=== PATIENT | male | born 1945 | race Caucasian/White ===

== ENCOUNTER 2024-02-27 08:22 | Inpatient (IN) | payer MEDICARE ==
[2024-02-27] VITALS (7 sets, daily range): BP systolic 136–155; BP diastolic 58–81; PULSE 52–70; TEMP 97.6–98.4
[2024-02-27] MEDS ORDERED: GLUCOPHAGE500 MG/TAB PO (08:44)
[2024-02-27] MEDS ORDERED: B-12 500 MCG PO (08:45)
[2024-02-27] MEDS ORDERED: MEVACOR 20M20 MG/TAB PO (08:46)
[2024-02-27] MEDS ORDERED: COUMADIN 5MG5 MG/TAB PO (08:47)
[2024-02-27] MEDS ORDERED: COUMADIN 6MG6 MG/TAB PO (08:48)
[2024-02-27] MEDS ORDERED: CARTIA XT120 MG PO (08:49)
--- NOTE | 2024-02-27 08:50 | NUR ---
PATIENT ADMITTED TO MEDICAL UNIT AT THIS TIME. ADMISSION INTAKE AND ASSESSMENT COMPLETED. MED REC UPDATED. IV PLACED. UPDATED PATIENT AND ON THE PLAN OF CARE. ORIENTED PATIENT TO ROOM. CALL LIGHT WITHIN REACH. WILL CONTINUE TO MONITOR.
[2024-02-27] MEDS ORDERED: XALATAN EYE DROPS OU (08:51)
[2024-02-27] MEDS ORDERED: ALPHAGAN OPHTH D5 ML OU (08:51)
[2024-02-27] MEDS ORDERED: TIMOLOL MALEATE5 M1 OP (08:52)
[2024-02-27 09:12] LABS: BASO % 0.4 % (0.0-2.0); EOS # 0.2 K/mm3 (0.0-0.7); EOS % 2.4 % (0.0-4.0); GRAN % 57.3 % (42.2-75.2); LYMPH # 2.1 K/mm3 (1.2-3.4); LYMPH % 29.9 % (20.0-51.0); MEAN CELL VOLUME 94 fl (80.0-100.0); MEAN CORPUSCULAR HEMOGLOBIN 33 pg (27-31); MEAN CORPUSCULAR HGB CONC 35 g/dl (33.0-37.0); MEAN PLATELET VOLUME 10.5 fl (7.4-10.4); MONO # 0.7 K/mm3 (0.1-0.6); MONO % 9.6 % (1.7-9.3); PLATELET COUNT 248 K/mm3 (130-400); RED BLOOD COUNT 4.59 M/mm3 (4.20-5.60); REDCELL DISTRIBUTION WIDTH-CV 12.9 % (11.5-14.5)
[2024-02-27 09:18] LABS: INR 2.7 (0.8-3.0); PROTHROMBIN TIME 28.9 SECONDS (9.7-12.8)
[2024-02-27 09:28] LABS: ALBUMIN 3.6 g/dL (3.4-4.8); BILIRUBIN,TOTAL 0.4 mg/dL (0.2-1.2); CALCIUM 8.8 mg/dL (8.4-10.2); CREATININE, serum 0.76 mg/dL (0.72-1.25); POTASSIUM 4.4 mEq/L (3.5-4.5); TOTAL PROTEIN 6.6 g/dl (6.2-8.1)
[2024-02-27] MEDS ORDERED: Ondansetron 4 MG/2 ML VIAL IV PRN (10:00)
[2024-02-27] MEDS ORDERED: Bisacodyl 5 MG TAB PO PRN (10:00)
[2024-02-27] MEDS ORDERED: Magnes Hydrox (MOM) 80 MG/ML 30 ML CUP PO PRN (10:00)
--- NOTE | 2024-02-27 15:11 | NUR ---
CRISTINE met with patient and his Francisca ([phone]) to complete initial assessment for discharge planning. Patient and live in [place], [place], patient sees Dr. Mehul Steel in [facility] as his PCP. Patient uses [facility] in [facility] without difficulty. Pateint has a wheelchair, walker, cane, shower chair and grab bars at home but doesn't use them. Patient reports to be independent with all activities and plans to return home at discharge. Discharge plan: Home
[2024-02-27] MEDS ORDERED: metFORMIN 500 MG TAB PO SCH (17:00)
[2024-02-27] MEDS ORDERED: Melatonin 3 MG TAB PO PRN (21:00)
[2024-02-27] MEDS ORDERED: Cephalexin 500 MG CAP PO SCH (21:00)
[2024-02-27] MEDS ORDERED: Atorvastatin 10 MG TAB PO SCH (21:00)
[2024-02-27] MEDS ORDERED: LOVASTATIN 20 MG PO SCH (21:00)
[2024-02-27] MEDS ORDERED: Timolol 0.5% Ophth Soln 5 ML BOTTLE OP SCH (21:00)
[2024-02-27] MEDS ORDERED: [UNRECOGNIZED DRUG - OTHER] PO SCH (21:00)
[2024-02-27] MEDS ORDERED: Brimonidine 0.2% Ophth Soln 5 ML BOTTLE OP SCH (21:00)
[2024-02-27] MEDS ORDERED: dilTIAZem CD (24-HR) 120 MG CAP PO SCH (21:00)
[2024-02-27] MEDS ORDERED: Latanoprost 0.005% Ophth Soln 2.5 ML BOTTLE OP SCH (21:00)
--- NOTE | 2024-02-27 21:31 | NUR ---
patient lying in bed, alert and oriented x4, can be forgetfull at times. denies chest pain/discomfort and shortness of breath. IV in RF is patent, site CDI. ambulates with steady gait occasionally using his cane. mid chest site with gauze, CDI. no remarkable skin abnormalities noted. call light within reach. pt has no further needs, questions or concerns at this time.
[2024-02-28] VITALS (13 sets, daily range): BP systolic 132–153; BP diastolic 69–86; PULSE 47–62; TEMP 97.8–98.3
[2024-02-28 06:32] LABS: BASO % 0.3 % (0.0-2.0); EOS # 0.1 K/mm3 (0.0-0.7); EOS % 1.9 % (0.0-4.0); GRAN # 3.3 K/mm3 (1.4-6.5); GRAN % 55.7 % (42.2-75.2); HEMATOCRIT 43.4 % (42.0-52.0); HEMOGLOBIN 14.9 g/dl (13.5-18.0); LYMPH # 1.9 K/mm3 (1.2-3.4); LYMPH % 32.5 % (20.0-51.0); MEAN CELL VOLUME 94 fl (80.0-100.0); MEAN CORPUSCULAR HEMOGLOBIN 32 pg (27-31); MEAN CORPUSCULAR HGB CONC 34 g/dl (33.0-37.0); MEAN PLATELET VOLUME 10.5 fl (7.4-10.4); MONO # 0.5 K/mm3 (0.1-0.6); MONO % 9.1 % (1.7-9.3); PLATELET COUNT 230 K/mm3 (130-400); RED BLOOD COUNT 4.64 M/mm3 (4.20-5.60); REDCELL DISTRIBUTION WIDTH-CV 12.6 % (11.5-14.5)
[2024-02-28 06:47] LABS: INR 2.4 (0.8-3.0); PROTHROMBIN TIME 25.1 SECONDS (9.7-12.8)
[2024-02-28 06:51] LABS: CALCIUM 8.8 mg/dL (8.4-10.2); CREATININE, serum 0.74 mg/dL (0.72-1.25); POTASSIUM 4.2 mEq/L (3.5-4.5)
[2024-02-28] MEDS ORDERED: Warfarin 5 MG TAB PO SCH (07:00)
[2024-02-28] MEDS ORDERED: Cyanocobalamin (Vit B-12) 1,000 MCG TAB PO SCH (09:00)
--- NOTE | 2024-02-28 09:00 | NUR ---
patient alert and oriented x4. patient denies pain at this time. patient chest loop site C/D/I. patient iv c/d/i. no fluids ruinning at this time.telemetry monitoring inplace. shift assessment completed.patient denies any other needs at this time. call light within reach. bed at lowest position.
[2024-02-28] MEDS ORDERED: amLODIPine 5 MG TAB PO SCH (09:30)
--- NOTE | 2024-02-28 12:39 | NUR ---
Initial visit; Patient nice to visit with, thanked for introducing herself and offering God's blessings. Art Coordinator was pleased to receive a request to hold Glen in her prayers.
[2024-02-29] VITALS (7 sets, daily range): BP systolic 128–148; BP diastolic 60–74; PULSE 45–54; TEMP 98.1–98.5
--- NOTE | 2024-02-29 00:46 | NUR ---
patient lying in bed alert and oriented x4 with occasional forgetfullness. denies chest pain/discomfort and shortness of breath. mid chest site with gauze, CDI. ambulating with steady gait. call light within reach. pt has no further needs, questions or concerns at this time.
[2024-02-29 06:21] LABS: BASO % 0.4 % (0.0-2.0); EOS # 0.1 K/mm3 (0.0-0.7); EOS % 1.9 % (0.0-4.0); GRAN % 56.7 % (42.2-75.2); HEMATOCRIT 43.8 % (42.0-52.0); HEMOGLOBIN 15.4 g/dl (13.5-18.0); LYMPH # 2.2 K/mm3 (1.2-3.4); LYMPH % 30.9 % (20.0-51.0); MEAN CELL VOLUME 93 fl (80.0-100.0); MEAN CORPUSCULAR HEMOGLOBIN 33 pg (27-31); MEAN CORPUSCULAR HGB CONC 35 g/dl (33.0-37.0); MEAN PLATELET VOLUME 10.2 fl (7.4-10.4); MONO # 0.7 K/mm3 (0.1-0.6); MONO % 9.7 % (1.7-9.3); PLATELET COUNT 232 K/mm3 (130-400); REDCELL DISTRIBUTION WIDTH-CV 12.4 % (11.5-14.5)
[2024-02-29 06:39] LABS: INR 2.1 (0.8-3.0); PROTHROMBIN TIME 22.4 SECONDS (9.7-12.8)
[2024-02-29 06:45] LABS: CREATININE, serum 0.73 mg/dL (0.72-1.25); MAGNESIUM 1.9 mg/dL (1.6-2.6); POTASSIUM 4.1 mEq/L (3.5-4.5)
--- NOTE | 2024-02-29 08:30 | NUR ---
PATIENT ALERT AND ORIENTED X4. DENIES PAIN AT THIS TIME. TELEMETRY MONITORING INPLACE. PATIENT ON ROOM AIR, VSS WNL. SHIFT ASSESSMENT COMPLETED. NO FUTHER NEEDS AT THIS TIME. CALL LIGHT WITHIN REACH. BED AT LOWEST POSITION.
[2024-02-29] MEDS ORDERED: NORVASC 5MG5 MG/TAB PO (11:50)
[2024-02-29] MEDS ORDERED: BETAPACE 80MG80 MG PO (11:50)
--- NOTE | 2024-02-29 12:54 | NUR ---
PATIENT DISCHARGE INSTRUCTIONS GIVEN. PATIENT AND VERBALIZED UNDERSTANDING. PATIENT IV AND TELEMETRY DISCONTINUED. THIS NURSE WALKED PAITENT TO HOSPITAL ENTRANCE.
== END 2024-02-29 13:15 | disposition home or self-care (01) | DRG 262 ==
LOC: MEDICAL 08:22
PROVIDERS: ADMIT Internal Medicine Cardiovascular Disease
PROC: 0JH632Z Insertion of Monitoring Device into Chest Subcutaneous Tissue and Fascia, Percutaneous Approach (ICD-10-PCS; principal; 2024-02-27)
DX: I48.0 Paroxysmal atrial fibrillation (principal); Z23 Encounter for immunization; E78.5 Hyperlipidemia, unspecified; E11.9 Type 2 diabetes mellitus without complications; Z87.891 Personal history of nicotine dependence; H40.9 Unspecified glaucoma; I08.3 Combined rheumatic disorders of mitral, aortic and tricuspid valves; Z79.01 Long term (current) use of anticoagulants; R00.1 Bradycardia, unspecified; T46.1X5A Adverse effect of calcium-channel blockers, initial encounter
CPT/HCPCS: C1764